=== PATIENT | male | born 1970 | race Caucasian/White ===

== ENCOUNTER 2019-01-24 14:05 | Emergency (ER) | payer OTHER ==
[2019-01-24] MEDS ORDERED: NA CHLORIDE 0.9% 1,000 ML ONE (15:04)
[2019-01-24 15:19] LABS: Absolute Lymphocytes (CBC) 1.7 K/uL (0.7-4.9); Basophils % 0.4 % (0-1.3); Hematocrit 42.8 % (39.6-49.0); Lymphocytes % 21.5 % (15.3-44.8); MPV 9.8 fL (7.6-11.3); RBC Red Blood Cell Count 4.86 M/uL (4.33-5.43)
[2019-01-24 15:21] LABS: Protime INR 1.04
--- NOTE | 2019-01-24 15:30 | RAD REPORT ---
EXAM DESCRIPTION: RAD - Chest Single View - 01/24/2019 2:49 pm CLINICAL HISTORY: Chest pain, shortness of breath COMPARISON: None. TECHNIQUE: AP portable chest image was obtained 1434 hours . FINDINGS: Lungs are clear. Heart and vasculature are normal. No measurable pleural effusion and no p neumothorax. No acute bony abnormality seen. No acute aortic findings suspected. IMPRESSION: No acute cardiopulmonary process.
[2019-01-24 15:49] LABS: ALT/SGPT 65 U/L (12-78); AST/SGOT 28 U/L (15-37); Albumin 4.2 g/dL (3.4-5.0); Alkaline Phosphatase 79 U/L (45-117); BUN Blood Urea Nitrogen 15 mg/dL (7-18); Bicarbonate 27 mmol/L (21-32); Bilirubin Direct 0.1 mg/dL (0-0.2); Bilirubin Total 0.5 mg/dL (0.2-1.0); Glucose Level 102 mg/dL (74-106); Magnesium 1.9 mg/dL (1.8-2.4); NT PRO-BNP 69 pg/mL (<125); Potassium 3.3 mmol/L (3.5-5.1); Protein, Total 8.2 g/dL (6.4-8.2); Sodium Level 139 mmol/L (136-145); Troponin (Emerg Dept Use Only) < 0.02 ng/mL (0.0-0.045)
--- NOTE | 2019-01-24 16:32 | ER ---
Nurse's Notes [facility] Name: Leobardo Weaver Age: 48 yrs Sex: Male : 1970 Arrival Date: 01/24/2019 Time: 14:08 Bed 20 Private MD: Diagnosis: Gastro-esophageal reflux disease;Chest pain, unspecified Presentation: 01/24 14:15 Presenting complaint: Patient states: shortness of breath, "fuzzy" feeling in chest and ss fatigue that has now resolved that began this morning. Transition of care: patient was not received from another setting of care. Onset of symptoms was January 24, 2019. Risk Assessment: Do you want to hurt yourself or someone else? Patient reports no desire to harm self or others. Initial Sepsis Screen: Does the patient meet any 2 criteria? No. Patient's initial sepsis screen is negative. Does the patient have a suspected source of infection? No. Patient's initial sepsis screen is negative. Care prior to arrival: None. 14:15 Method Of Arrival: Ambulatory ss 14:15 Acuity: DIMAS 3 ss Triage Assessment: 15:10 General: Appears in no apparent distress. comfortable, Behavior is calm, cooperative. ae4 Pain: Complains of pain in xyphoid area, right breast and left breast Pain currently is 0 out of 10 on a pain scale. EENT: No signs and/or symptoms were reported regarding the EENT system. Neuro: Level of Consciousness is awake, alert, obeys commands. Cardiovascular: Heart tones S1 S2 present Patient's skin is warm and dry. Respiratory: Airway is patent Respiratory effort is even, unlabored, relaxed, Respiratory pattern is regular, symmetrical, Breath sounds are clear bilaterally. GI: No signs and/or symptoms were reported involving the gastrointestinal system. Abdomen is round obese, Bowel sounds Abd is soft and non tender. : No signs and/or symptoms were reported regarding the genitourinary system. Derm: Skin is pink, warm \\T\\ dry. Musculoskeletal: No signs and/or symptoms reported regarding the musculoskeletal system. Historical: - Allergies: 14:17 No Known Allergies; ss - PMHx: 14:17 GERD; ss - PSHx: 14:17 None; ss - Immunization history:: Adult Immunizations up to date. - Social history:: Smoking status: Patient/guardian denies using tobacco. - Ebola Screening: : Patient denies exposure to infectious person Patient denies travel to an Ebola-affected area in the 21 days before illness onset. Screenin:10 Abuse screen: Denies threats or abuse. Nutritional screening: No deficits noted. ae4 Tuberculosis screening: No symptoms or risk factors identified. Fall Risk None identified. Assessment: 15:24 Reassessment: Patient appears in no apparent distress at this time. Patient denies pain ae4 at this time. 16:50 Reassessment: Patient appears in no apparent distress at this time. Patient and/or ae4 family updated on plan of care and expected duration. Pain level reassessed. Patient denies pain at this time. Vital Signs: 14:17 BP 158 / 92; Pulse 74; Resp 18; Temp 98.1(O); Pulse Ox 98% on R/A; Weight 120.2 kg; ss Height 5 ft. 9 in. (175.26 cm); Pain 0/10; 15:13 BP 154 / 88; Pulse 67; Resp 15; Pulse Ox 98% on R/A; ae4 15:38 BP 143 / 75; Pulse 64; Resp 16; Pulse Ox 97% on R/A; ae4 16:57 BP 131 / 78; Pulse 66; Resp 17; Pulse Ox 97% on R/A; Pain 0/10; ae4 14:17 Body Mass Index 39.13 (120.20 kg, 175.26 cm) ss ED Course: 14:08 Patient arrived in ED. as 14:17 Triage completed. ss 14:17 Arm band placed on right wrist. ss 14:21 Jazzmine Birmingham FNP-C [facility]. snw 14:21 Neville Lew MD is Attending Physician. snw 14:31 Bryant Matthews RN is Primary Nurse. ae4 14:35 EKG done, by porcelain technician. reviewed by Jazzmine ALCOCER. sm3 14:40 Inserted saline lock: 20 gauge in left antecubital area, using aseptic technique. Blood ae4 collected. 14:49 XRAY Chest (1 view) In Process Unspecified. EDMS 15:09 Placed in gown. Bed in low position. Call light in reach. Side rails up X 1. Cardiac ae4 monitor on. Pulse ox on. NIBP on. Lights dimmed. 16:31 Lemon, Na, MD is Referral Physician. snw 16:56 No provider procedures requiring assistance completed. IV discontinued, intact, ae4 bleeding controlled, No redness/swelling at site. Pressure dressing applied. Administered Medications: Discontinued: NS 0.9% 1000 ml IV at 125 ml/hr continuous 14:45 Drug: NS 0.9% 1000 ml Route: IV; Rate: 125 ml/hr; Site: left antecubital; ae4 16:58 Follow up: IV Status: Order to discontinue infusion; apprx. 300 mls infused. ae4 16:36 Drug: CarafATE 1 grams Route: PO; ae4 16:56 Follow up: Response: Medication administered at discharge. ae4 16:36 Drug: Simethicone 80 mg Route: PO; ae4 16:56 Follow up: Response: Medication administered at discharge. ae4 Intake: Outcome: 16:31 Discharge ordered by MD. snw 16:56 Discharged to home ambulatory, with family. ae4 16:56 Condition: stable 16:56 Discharge instructions given to patient, Instructed on discharge instructions, follow up and referral plans. medication usage, Demonstrated understanding of instructions, Prescriptions given X 1. 16:57 Patient left the ED. ae4 Signatures: Dispatcher [employer] EDMS Jazzmine Birmingham, BILLER-C BILLER-Jyoti Gonzalez Shelby, RN RN Mary Sullivan 3 Bryant Matthews RN RN ae4
--- NOTE | 2019-01-24 16:32 | EDPHYS ---
Physician Documentation [facility] Name: Leobardo Weaver Age: 48 yrs Sex: Male : 1970 Arrival Date: 01/24/2019 Time: 14:08 Bed 20 Private MD: ED Physician Neville Lew HPI: 01/24 14:37 This 48 yrs old Male presents to ER via Ambulatory with complaints of Chest snw Discomfort, Weakness. 14:37 Onset: The symptoms/episode began/occurred suddenly, just prior to arrival. Associated snw signs and symptoms: Pertinent positives: chest pain, shortness of breath. Modifying factors: The patient symptoms are alleviated by nothing, the patient symptoms are aggravated by nothing. The patient has experienced a previous episode, but today's symptoms are worse, more centrally located . appt with Dr. Lemon on 02/02/19. Historical: - Allergies: 14:17 No Known Allergies; ss - PMHx: 14:17 GERD; ss - PSHx: 14:17 None; ss - Immunization history:: Adult Immunizations up to date. - Social history:: Smoking status: Patient/guardian denies using tobacco. - Ebola Screening: : Patient denies exposure to infectious person Patient denies travel to an Ebola-affected area in the 21 days before illness onset. ROS: 14:36 Constitutional: Negative for fever, chills, and weight loss, Eyes: Negative for injury, snw pain, redness, and discharge, ENT: Negative for injury, pain, and discharge, Neck: Negative for injury, pain, and swelling. 14:36 Abdomen/GI: Negative for abdominal pain, nausea, vomiting, diarrhea, and constipation, Back: Negative for injury and pain, : Negative for injury, bleeding, discharge, and swelling, MS/Extremity: Negative for injury and deformity, Skin: Negative for injury, rash, and discoloration, Neuro: Negative for headache, weakness, numbness, tingling, and seizure, Psych: Negative for depression, anxiety, suicide ideation, homicidal ideation, and hallucinations. 14:36 Cardiovascular: Positive for chest pain, palpitations. 14:36 Respiratory: Positive for shortness of breath, at rest. Exam: 14:36 Constitutional: This is a well developed, well nourished patient who is awake, alert, snw and in no acute distress. Head/Face: Normocephalic, atraumatic. Eyes: Pupils equal round and reactive to light, extra-ocular motions intact. Lids and lashes normal. Conjunctiva and sclera are non-icteric and not injected. Cornea within normal limits. Periorbital areas with no swelling, redness, or edema. ENT: Nares patent. No nasal discharge, no septal abnormalities noted. Tympanic membranes are normal and external auditory canals are clear. Oropharynx with no redness, swelling, or masses, exudates, or evidence of obstruction, uvula midline. Mucous membranes moist. Neck: Trachea midline, no thyromegaly or masses palpated, and no cervical lymphadenopathy. Supple, full range of motion without nuchal rigidity, or vertebral point tenderness. No Meningismus. Chest/axilla: Normal chest wall appearance and motion. Nontender with no deformity. No lesions are appreciated. Cardiovascular: Regular rate and rhythm with a normal S1 and S2. No gallops, murmurs, or rubs. Normal PMI, no JVD. No pulse deficits. Respiratory: Lungs have equal breath sounds bilaterally, clear to auscultation and percussion. No rales, rhonchi or wheezes noted. No increased work of breathing, no retractions or nasal flaring. Abdomen/GI: Soft, non-tender, with normal bowel sounds. No distension or tympany. No guarding or rebound. No evidence of tenderness throughout. Back: No spinal tenderness. No costovertebral tenderness. Full range of motion. Skin: Warm, dry with normal turgor. Normal color with no rashes, no lesions, and no evidence of cellulitis. MS/ Extremity: Pulses equal, no cyanosis. Neurovascular intact. Full, normal range of motion. Neuro: Awake and alert, GCS 15, oriented to person, place, time, and situation. Cranial nerves II-XII grossly intact. Motor strength 5/5 in all extremities. Sensory grossly intact. Cerebellar exam normal. Normal gait. Psych: Awake, alert, with orientation to person, place and time. Behavior, mood, and affect are within normal limits. Vital Signs: 14:17 BP 158 / 92; Pulse 74; Resp 18; Temp 98.1(O); Pulse Ox 98% on R/A; Weight 120.2 kg; ss Height 5 ft. 9 in. (175.26 cm); Pain 0/10; 15:13 BP 154 / 88; Pulse 67; Resp 15; Pulse Ox 98% on R/A; ae4 15:38 BP 143 / 75; Pulse 64; Resp 16; Pulse Ox 97% on R/A; ae4 16:57 BP 131 / 78; Pulse 66; Resp 17; Pulse Ox 97% on R/A; Pain 0/10; ae4 14:17 Body Mass Index 39.13 (120.20 kg, 175.26 cm) ss MDM: 14:23 Patient medically screened. snw 16:31 Data reviewed: vital signs, nurses notes. Data interpreted: Pulse oximetry: on room air snw is 97 %. Interpretation: normal. Counseling: I had a detailed discussion with the patient and/or guardian regarding: the historical points, exam findings, and any diagnostic results supporting the discharge/admit diagnosis, the presence of at least one elevated blood pressure reading (>120/80) during this emergency department visit, lab results, radiology results, the need for outpatient follow up, for definitive care, to return to the emergency department if symptoms worsen or persist or if there are any questions or concerns that arise at home. Physician consultation:. Special discussion: Based on the history and exam findings, there is no indication for further emergent testing or inpatient evaluation. I discussed with the patient/guardian the need to see the primary care provider for further evaluation of the symptoms. ED course: appt with Dr. Lemon 02/02/19, encouraged to sleep with HOB elevated, not to eat or drink 2 hours prior to lying down. 01/24 14:22 Order name: Basic Metabolic Panel snw 01/24 14:22 Order name: CBC with Diff; Complete Time: 15:35 snw 01/24 14:22 Order name: LFT's; Complete Time: 16:03 snw 01/24 14:22 Order name: Magnesium; Complete Time: 16:03 snw 01/24 14:22 Order name: NT PRO-BNP; Complete Time: 16:03 snw 01/24 14:22 Order name: PT-INR; Complete Time: 15:35 snw 01/24 14:22 Order name: Troponin (emerg Dept Use Only); Complete Time: 16:03 snw 01/24 14:22 Order name: XRAY Chest (1 view); Complete Time: 15:35 snw 01/24 14:25 Order name: Basic Metabolic Panel; Complete Time: 16:03 EDMS 01/24 14:38 Order name: Lipase; Complete Time: 15:41 snw 01/24 15:00 Order name: Urine Dipstick--Ancillary (enter results) bd 01/24 14:18 Order name: EKG; Complete Time: 14:20 ss 01/24 14:18 Order name: EKG - Nurse/Tech; Complete Time: 14:33 ss 01/24 14:22 Order name: Cardiac monitoring; Complete Time: 15:10 snw 01/24 14:22 Order name: IV Saline Lock; Complete Time: 15:10 snw 01/24 14:22 Order name: Labs collected and sent; Complete Time: 15:10 snw 01/24 14:22 Order name: O2 Per Protocol; Complete Time: 14:33 snw 01/24 14:22 Order name: O2 Sat Monitoring; Complete Time: 14:33 snw Administered Medications: Discontinued: NS 0.9% 1000 ml IV at 125 ml/hr continuous 14:45 Drug: NS 0.9% 1000 ml Route: IV; Rate: 125 ml/hr; Site: left antecubital; ae4 16:58 Follow up: IV Status: Order to discontinue infusion; apprx. 300 mls infused. ae4 16:36 Drug: CarafATE 1 grams Route: PO; ae4 16:56 Follow up: Response: Medication administered at discharge. ae4 16:36 Drug: Simethicone 80 mg Route: PO; ae4 16:56 Follow up: Response: Medication administered at discharge. ae4 Disposition: 17:01 Co-signature as Attending Physician, Neville Lew MD I agree with the assessment and kdr plan of care. Disposition: 01/24/19 16:31 Discharged to Home. Impression: Gastro-esophageal reflux disease, Chest pain, unspecified. - Condition is Stable. - Discharge Instructions: Nonspecific Chest Pain, Esophagitis, Gastroesophageal Reflux Disease, Adult, Hypertension, Fat and Cholesterol Restricted Diet, [id number]. - Prescriptions for Pepcid 20 mg Oral Tablet - take 1 tablet by ORAL route once daily; 20 tablet. - Work release form, Medication Reconciliation Form, Thank You Letter, Antibiotic Education, Prescription Opioid Use form. - Follow up: Akila Lemon; When: as scheduled; Reason: Recheck today's complaints, Continuance of care, Re-evaluation by your physician. Follow up: Emergency Department; When: As needed; Reason: Worsening of condition. Signatures: Dispatcher [employer] EDMS Neville Lew MD MD [facility] Jazzmine Birminhgam, ROOFER GYPSUM-C ROOFER GYPSUM-Csnw Nevaeh Ernst RN RN ss Bryant Matthews RN RN ae4 Corrections: (The following items were deleted from the chart) 16:57 16:31 01/24/2019 16:31 Discharged to Home. Impression: Gastro-esophageal reflux ae4 disease; Chest pain, unspecified. Condition is Stable. Discharge Instructions: Nonspecific Chest Pain, Esophagitis, Gastroesophageal Reflux Disease, Adult, Hypertension, Fat and Cholesterol Restricted Diet, [id number]. Prescriptions for Pepcid 20 mg Oral Tablet - take 1 tablet by ORAL route once daily; 20 tablet. and Forms are Work release form, Medication Reconciliation Form, Thank You Letter, Antibiotic Education, Prescription Opioid Use. Follow up: Akila Lemon; When: as scheduled; Reason: Recheck today's complaints, Continuance of care, Re-evaluation by your physician. Follow up: Emergency Department; When: As needed; Reason: Worsening of condition. snw
[2019-01-24] MEDS ORDERED: SUCRALFATE 1 GM TABLET ONE (16:45)
[2019-01-24] MEDS ORDERED: SIMETHICONE 80 MG TAB ONE (16:45)
[2019-01-24 16:59] LABS: Urine Blood TRACE (NEG); Urine Glucose NEGATIVE (NEG); Urine Protein TRACE (NEG); Urine Specific Gravity 1.025 (1.005-1.030); Urine pH 5.5 (5.0-7.0)
--- NOTE | 2019-01-25 10:40 | EKG ---
Test Date: 2019-01-24 Test Time: 14:23:54 Buffer Machine: JEANETTE-Candi MEASUREMENT RESULTS: Intervals: Rate: 67 MS: 170 QRSD: 114 QT: 408 QTc: 431 [place]: P: 44 MS: 170 QRS: 0 T: 29 INTERPRETIVE STATEMENTS: Normal sinus rhythm Normal ECG Compared to ECG 03/12/2002 18:49:00 Sinus bradycardia no longer present Sinus arrhythmia no longer present Intraventricular conduction delay no longer present Electronically Signed On 01-25-19 10:39:01 CDT by Selvin Mabry
== END 2019-01-24 16:57 | disposition home or self-care (01) ==
LOC: ER 14:05
DX: K21.9 Gastro-esophageal reflux disease without esophagitis (principal); R07.9 Chest pain, unspecified
CPT/HCPCS: 36415; 71045; 80048; 80076; 81003; 83690; 83735; 83880; 84484; 85025; 85610; 93005; 96360; 96361; 99285; J7030

== ENCOUNTER 2023-04-28 08:17 | Day surgery (SDC) | payer OTHER ==
[2023-04-27 11:12] LABS: Absolute Lymphocytes (CBC) 2.1 K/uL (0.7-4.9); Hematocrit 36.6 % (39.6-49.0); MCV 86.7 fL (80-100); MPV 8.7 fL (7.6-11.3); Platelets 218 thou/uL (152-406); RBC Red Blood Cell Count 4.23 M/uL (4.33-5.43)
--- NOTE | 2023-04-27 11:16 | RAD REPORT ---
EXAM DESCRIPTION: Ulysses Jacques (2 Views)04/27/2023 11:04 am CLINICAL HISTORY: Preop for excision of an abdominal mass. Hypertension COMPARISON: 2019 FINDINGS: The lungs appear clear of acute infiltrate. On the lateral view the heart appears mildly enlarged IMPRESSION: No acute abnormalities displayed
--- NOTE | 2023-04-27 11:53 | EKG ---
Test Date: 2023-04-27 Test Time: 10:52:18 [employer]lash And Wash Operator: ALEXANDREA MEASUREMENT RESULTS: Intervals: Rate: 57 MS: 156 QRSD: 110 QT: 442 QTc: 430 [place]: P: 43 MS: 156 QRS: 61 T: 35 INTERPRETIVE STATEMENTS: Sinus bradycardia Low voltage QRS Borderline ECG Compared to ECG 06/26/2022 08:32:55 Low QRS voltage now present Electronically Signed On 04-27-23 11:53:20 CDT by Fahad Hernandez
[2023-04-28] MEDS ORDERED: Ringers Lactate 1,000 ML IV ONE (08:46)
[2023-04-28] MEDS: CEFAZOLIN SODIUM 1 GM/VIAL ONE ×2 (09:10→09:56)
[2023-04-28] MEDS ORDERED: ONDANSETRON 4 MG/2 ML VIAL ONE (09:53)
[2023-04-28] MEDS ORDERED: FENTANYL CITR 100 MCG/2 ML ONE (09:53)
[2023-04-28] MEDS ORDERED: propofoL 200 MG/20 ML VIAL IV ONE (09:53)
[2023-04-28] MEDS ORDERED: LIDOCAINE 2% MPF 5 ML VIAL ONE (09:53)
[2023-04-28] MEDS ORDERED: MIDAZOLAM HCL 2 MG/2 ML INJ ONE (09:53)
[2023-04-28] MEDS ORDERED: KETOROLAC 30 MG/ML INJ ONE (10:28)
--- NOTE | 2023-04-28 11:04 | P.BOP ---
Preoperative diagnosis: intramuscular abdominal wall tender mass Postoperative diagnosis: same Primary procedure: Excision of intramuscular abdominal wall tender mass 5x5cm Estimated blood loss: <10cc Specimen: mass Findings: mass deep to oblique muscle Anesthesia: General Complications: None Transferred to: Recovery Room Condition: Good
--- NOTE | 2023-04-28 18:16 | OP ---
Date of Procedure: 04/28/2023 Surgeon: Amilcar Triplett MD Preoperative Diagnosis: Intramuscular right upper quadrant abdominal wall tender mass. Postoperative Diagnosis: Intramuscular right upper quadrant abdominal wall tender mass. Procedure: Excisional biopsy of right upper quadrant intramuscular abdominal wall tender mass 5 x 5 cm. Estimated Blood Loss: Less than 10 cc. Specimen: Mass. Finding: Mass deep to the oblique muscles. Anesthesia: General plus local. Complications: None. Indication: This is a case of a 52-year-old patient who comes to us with a tender mass in the abdome n. It is deep. Patient can feel it. I can feel it. He is not sure exactly what it is. He wants t hat excised. The benefits, alternatives, and risks of excision fully explained, which include, but n ot limited to, infection, bleeding, damage to adjacent structures, anesthesia complication, recurrenc e, ND, and even . He also understands this may not relieve any symptoms. He might need more th an one surgical intervention. The area of concern was marked by me and the patient in the holding ro om. Description Of Procedure: Patient was brought to the operating room, placed in supine position. Ane sthesia was done without complication. Abdominal area was prepped and draped in usual sterile fashio n. Marcaine 0.5% was injected for local anesthetic followed by sharp incision of the skin. Incision was carried down to skin and fat until we found the muscle. This mass was deep to the oblique muscl es. So we found the direction of the fibers of the muscle. We proceeded to split the fibers in that direction until we went deep to the muscle. Underneath the muscle, we have this well delineated mas s that with the help of blunt dissection we were able to enucleate intact. Hemostasis was obtained. The muscle was allowed to come together, reinforced with the chromic, and then after that, the subcu taneous tissue with 3-0 chromic and the skin in subcuticular fashion with the 4-0 PDS. After irrigat ion, hemostasis was checked and count was also correct. Steri-Strips were placed over the area. Pat ient tolerated the procedure well. Patient was sent to Recovery in stable condition. LILLIE/CASPER Voice ID: [id number] Report ID: [id number]
--- NOTE | 2023-04-28 18:19 | DS ---
Date of Discharge: 04/28/2023 Diagnosis: Intramuscular abdominal wall tender mass. Procedure: Excisional biopsy of intramuscular abdominal wall mass. Disposition: Home. Activity: As tolerated. No heavy lifting. Plan: Follow up in my office in 1 week. Call for appointment [phone]. Use abdominal binder while out of bed. Keep the area dry for 48 hours, then may shower. Keep Steri-Strip intact. Condition: Stable. LILLIE/CASPER Voice ID: [id number] Report ID: [id number]
[2023-04-29 14:53] VITALS: BP 107/60; TEMP 97; O2SAT 94
== END 2023-04-28 12:30 | disposition home or self-care (01) ==
LOC: OR 08:17
PROVIDERS: ATTEND Surgery
PROC: 0JB80ZZ Excision of Abdomen Subcutaneous Tissue and Fascia, Open Approach (ICD-10-PCS; principal; 2023-04-28 10:00)
DX: D17.9 Benign lipomatous neoplasm, unspecified (principal); I10 Essential (primary) hypertension; E78.00 Pure hypercholesterolemia, unspecified; G47.33 Obstructive sleep apnea (adult) (pediatric); E66.9 Obesity, unspecified; Z68.36 Body mass index [BMI] 36.0-36.9, adult
CPT/HCPCS: 93005; 85025; 80048; 36415; 88304; 71046; 22901; 13101; J2704; J2001; J2250; J3010; J2405; J7120; J0690